=== PATIENT | female | born 1945 | race African-American/Black ===

== ENCOUNTER 2020-01-25 01:40 | Emergency (ER) | payer OTHER ==
[2020-01-25] MEDS ORDERED: ELIQUIS2.5 M1 PO (02:12)
[2020-01-25 02:24] LABS: BASO % 0.4 % (0.0-1.0); EOS # 0.3 10*3/uL (0.0-0.4); EOS % 4.9 % (1.0-4.0); HEMATOCRIT 33.5 % (37.0-47.0); LYMPH # 0.9 10*3/uL (1.3-4.4); LYMPH % 12.4 % (27.0-41.0); MEAN CELL VOLUME 75.8 fl (81.0-99.0); MEAN CORPUSCULAR HGB 23.8 pg (27.0-31.0); MEAN CORPUSCULAR HGB CONC 31.3 g/dl (33.0-37.0); MONO # 0.6 10*3/uL (0.1-1.0); NEUT % 73.3 % (47.0-73.0); PLATELET COUNT AUTOMATED 187 10*3/uL (130-400); RED BLOOD COUNT 4.42 10*6/uL (4.10-5.10); RED CELL DISTRI WIDTH 18.1 % (0-14.5); WHITE BLOOD COUNT 6.9 10*3/uL (4.8-10.8)
[2020-01-25 02:34] LABS: INTERNATIONAL NORM RATIO 1.4 (2.0-3.5)
[2020-01-25 02:41] LABS: ALBUMIN 2.7 gm/dl (3.1-4.5); ALKALINE PHOSPHATASE 121 U/L (45-117); BUN 27 mg/dl (7-24); CHLORIDE 96 mmol/L (98-107); CREATININE 5.33 mg/dL (0.55-1.02); POTASSIUM 4.4 mmol/L (3.5-5.1); SGOT/AST 30 IU/L (3-35); SGPT/ALT 20 U/L (12-78); SODIUM 130 mmol/L (136-145); TOTAL PROTEIN 6.7 gm/dL (6.4-8.2)
[2020-01-25 02:43] LABS: TROPONIN I 0.139 ng/ml (<0.045)
[2020-01-25 02:44] LABS: ETHYL ALCOHOL < 3.0 mg/dl (<3)
== END 2020-01-25 08:30 | disposition home or self-care (01) ==
LOC: ED 01:40
PROVIDERS: Emergency Medicine
DX: I95.9 Hypotension, unspecified (principal); R79.1 Abnormal coagulation profile